=== PATIENT | female | born 1930 | race Caucasian/White ===

== ENCOUNTER 2016-12-24 16:50 | Inpatient (IN) ==
--- NOTE | 2016-12-24 16:58 | Emergency Department Note ---
Disposition Clinical Impression: Near syncope Disposition: Admitted As Inpatient Condition: Fair Referrals: Unassigned,Provider [Non-Partnered Physician] - Forms: ED Satisfaction Letter Time of Disposition: 20:14 Dizziness HPI - General Chief Complaint: ED Dizziness Stated Complaint: dizziness,fever Time Seen by Provider: 12/24/16 16:54 Source: patient, EMS Mode of arrival: EMS Limitations: no limitations Nursing Notes Reviewed: Yes Vital Signs Reviewed: Yes - History of Present Illness HPI Narrative: 86-year-old who was at dialysis today and developed lightheadedness and felt like she was going to pass out. 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 Timing: sudden onset Description: near-syncope History of similar episodes: No History of trauma: No Severity: moderate Improves with: nothing Worsens with: nothing Associated symptoms: Reports: fever - Related Data Home Medications Medication Instructions Recorded Confirmed Acetaminophen [Tylenol] 500 - 1,000 mg PO QID PRN 12/24/16 12/24/16 Aspirin Enteric Coated [Aspirin EC] 81 mg PO DAILY 12/24/16 12/24/16 Calcium Polycarbophil [Fiber 625 mg PO QAM 12/24/16 12/24/16 Laxative] Dicyclomine [Bentyl] 10 mg PO BID 12/24/16 12/24/16 DiphenhydraMINE [Benadryl] 25 mg PO HS 12/24/16 12/24/16 Epoetin Anand [Procrit] 10,000 unit IJ MOWEFR 12/24/16 12/24/16 Ergocalciferol (VITAMIN D2) 400 unit PO SA 12/24/16 12/24/16 [Vitamin D] GuaiFENesin/Dextromethorphan 10 ml PO Q4H PRN 12/24/16 12/24/16 [Tussin Dm Syrup] L. Rhamnosus GG/Inulin [Culturelle 1 each PO BID 12/24/16 12/24/16 Capsule] Lisinopril [Zestril] 10 mg PO DAILY 12/24/16 12/24/16 Melatonin 3 mg PO HS 12/24/16 12/24/16 Metoclopramide HCl 5 mg PO HS 12/24/16 12/24/16 Metoprolol [Lopressor] 37.5 mg PO TID 12/24/16 12/24/16 Nitroglycerin 0.4 mg SL Q5M PRN 12/24/16 12/24/16 Pantoprazole Sodium [Protonix] 40 mg PO QAM 12/24/16 12/24/16 Promethazine [Phenergan] 25 mg PO QAM 12/24/16 12/24/16 Ropinirole HCl [Requip] 0.5 mg PO Q6H 12/24/16 12/24/16 Sevelamer [Renvela] 1,600 mg PO TIDWM 12/24/16 12/24/16 Tramadol HCl [Ultram] 50 mg PO Q6H PRN 12/24/16 12/24/16 Vancomycin HCl 125 mg PO Q48H 12/24/16 12/24/16 Vancomycin HCl 125 mg PO Q72H 12/24/16 12/24/16 Warfarin [Coumadin] 4 mg PO SUMOWETHFR 12/24/16 12/24/16 Warfarin [Coumadin] 5 mg PO TUSA 12/24/16 12/24/16 Allergies Allergy/AdvReac Type Severity Reaction Status Date / Time Penicillins [PCN] Allergy Anaphylaxis Verified 10/03/16 12:12 clarithromycin [From Biaxin] AdvReac Rash Verified 10/03/16 12:12 gentamicin AdvReac Hallucinati Verified 10/03/16 12:12 ng Sulfa (Sulfonamide AdvReac Shakiness Verified 10/03/16 12:12 Antibiotics) Constitutional: Reports: fever, chills, weakness (Generalized). Denies: weight change Eyes: Denies: eye pain, eye discharge, vision change ENT ED: Denies: ear pain, throat pain, dental pain, hearing loss, epistaxis, congestion, dysphagia Cardiovascular: Denies: chest pain, palpitations, dyspnea on exertion, edema, syncope Respiratory: Reports: cough. Denies: dyspnea, wheezes, hemoptysis, stridor Gastrointestinal: Denies: abdominal pain, nausea, vomiting, diarrhea, constipation, hematemesis, melena, hematochezia Genitourinary: Denies: dysuria, frequency, hematuria, discharge Musculoskeletal: Denies: back pain, neck pain, arthralgia, myalgia Integumentary: Denies: rash, abrasion, lesions Neurological: Denies: headache, weakness, numbness, paresthesias, confusion, abnormal gait, vertigo Psychiatric: Denies: anxiety, depression, suicidal thoughts, homicidal thoughts , auditory hallucinations, visual hallucinations Endocrine: Reports: fatigue Hematological/Lymphatic: Denies: easy bleeding, easy bruising Allergic/Immunologic: Denies: facial swelling, urticaria Past Medical History - Past Medical History Medical history: Reports: CHF, COPD, DVT, pulmonary embolus, renal disease Surgical history: Reports: cholecystectomy, herniorrhaphy, hysterectomy Psychiatric history: Reports: no psych history - Social History Smoking Status: Never smoker Alcohol use: Reports: none Drug use: Reports: none Physical Exam - General Limitations: no limitations General appearance: alert, in no apparent distress - Head Head exam: atraumatic, normocephalic, normal inspection - Eye Eye exam: Present: normal appearance, PERRL, EOMI - ENT ENT exam: normal exam, normal oropharynx, mucous membranes moist - Neck Neck exam: Present: normal inspection, full ROM, trachea midline - Chest Chest inspection: Present: normal inspection, symmetric chest wall rise - Respiratory Respiratory exam: Present: normal lung sounds bilaterally - Cardiovascular Cardiovascular exam: Present: regular rate, normal rhythm, normal heart sounds - Abdominal Exam Abdominal exam: Present: soft, Non-Tender. Absent: tenderness, distention, guarding, rebound, rigidity - Extremities Exam Extremities exam: Present: normal inspection, full ROM. Absent: tenderness, pedal edema - Expanded Lower Extremity Exam Neurovascular/Tendon exam: Absent: motor deficit, sensory deficit, tendon deficit - Back Exam Back exam: Present: normal inspection, full ROM. Absent: tenderness - Neurological Exam Neurological exam: Present: alert, oriented X3 - Psychiatric Psychiatric exam: Present: normal affect, normal mood - Skin Skin exam: Present: warm, dry Course - Reevaluation(s) Reevaluation #1: 86 year old female who was at dialysis was not lightheaded and felt like she was going pass out. She does have cold-like symptoms with a cough. The patient' s workup included a troponin that was slightly elevated likely related to her renal failure however there are no old ones to compare to. We are going ahead and admit patient for further evaluation and treatment. Time: 20:12 - Consultations Consultation #1: Discussed with , admit to the hospital. Time: 19:10 Consultation #2: Discussed with Dr. Moses, admit. Time: 20:12 Vital Signs Temperature 99 F 12/24/16 16:54 Pulse Rate 106 12/24/16 16:54 Respiratory Rate 18 12/24/16 16:54 Blood Pressure 171/107 12/24/16 16:54 O2 Sat by Pulse Oximetry 91 L 12/24/16 16:54 Temperature 99 F 12/24/16 16:54 Pulse Rate 106 12/24/16 18:59 Respiratory Rate 18 12/24/16 18:59 Blood Pressure 106/91 12/24/16 18:59 O2 Sat by Pulse Oximetry 96 12/24/16 18:59 Oxygen Delivery Oxygen Delivery Nasal Cannula Dizziness - Lab Data Result diagrams: 12/24/16 17:22 12/24/16 17:22 Lab Results 12/24/16 12/24/16 12/24/16 Range/Units 17:22 17:22 17:22 WBC 12.8 H (4.3-11.1) K/mcL RBC 3.26 L (3.82-4.97) M/mcL Hgb 10.3 L (11.5-15.4) g/dL Hct 33.0 L (35.3-44.9) % MCV 101.2 H (83.0-100.0) fL MCH 31.6 (28.0-33.3) pg MCHC 31.2 L (31.6-35.5) g/dL RDW 15.4 H (11.5-14.5) % Plt Count 244 (140-400) K/mcL MPV 9.4 (9.4-12.4) fL Immature Gran % 1.6 (0-4) % Seg Neutrophils % 73.7 % Lymphocytes % 17.0 % Monocytes % 6.5 % Eosinophils % 0.9 % Basophils % 0.3 % Neutrophils # 9.4 H (1.6-8.9) K/mcL Lymphocytes # 2.2 (0.6-4.6) K/mcL Monocytes # 0.8 (0.0-1.3) K/mcL Eosinophils # 0.1 (0.0-0.6) K/mcL Basophils # 0.0 (0.0-0.2) K/mcL PT 15.1 H (9.4-12.1) Seconds INR 1.4 Sodium 136 (136-145) mEq/L Potassium 3.6 (3.5-4.5) mEq/L Chloride 100 (98-109) mEq/L Carbon Dioxide 25 (19-29) mEq/L BUN 14 (7-20) mg/dL Creatinine 2.69 H (0.57-1.11) mg/dL Est GFR ( Amer) 20 L (> 60) Est GFR (Non-Af Amer) 17 L (> 60) BUN/Creatinine Ratio 5 L (6-26) Glucose 91 (70-99) mg/dL Calculated Osmolality 282 (280-300) Calcium 8.7 (8.6-10.8) mg/dL Troponin I (0-0.03) ng/mL 12/24/16 Range/Units 17:22 WBC (4.3-11.1) K/mcL RBC (3.82-4.97) M/mcL Hgb (11.5-15.4) g/dL Hct (35.3-44.9) % MCV (83.0-100.0) fL MCH (28.0-33.3) pg MCHC (31.6-35.5) g/dL RDW (11.5-14.5) % Plt Count (140-400) K/mcL MPV (9.4-12.4) fL Immature Gran % (0-4) % Seg Neutrophils % % Lymphocytes % % Monocytes % % Eosinophils % % Basophils % % Neutrophils # (1.6-8.9) K/mcL Lymphocytes # (0.6-4.6) K/mcL Monocytes # (0.0-1.3) K/mcL Eosinophils # (0.0-0.6) K/mcL Basophils # (0.0-0.2) K/mcL PT (9.4-12.1) Seconds INR Sodium (136-145) mEq/L Potassium (3.5-4.5) mEq/L Chloride (98-109) mEq/L Carbon Dioxide (19-29) mEq/L BUN (7-20) mg/dL Creatinine (0.57-1.11) mg/dL Est GFR ( Amer) (> 60) Est GFR (Non-Af Amer) (> 60) BUN/Creatinine Ratio (6-26) Glucose (70-99) mg/dL Calculated Osmolality (280-300) Calcium (8.6-10.8) mg/dL Troponin I 0.08 H* (0-0.03) ng/mL - Radiology Data Radiology results reviewed: Yes I reviewed the patient's radiology results. Chest X-Ray 12/24/16 16:54 IMPRESSION: 1. Low lung volumes. D/ / 12/24/2016 17:40:28 Delbert Park MD / gopal Interpreting Provider: Delbert Park MD Head CT 12/24/16 16:54 IMPRESSION: No acute intracranial abnormality. 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 Mild parenchymal volume loss. Moderate chronic microvascular disease. D/ / Aron Yepez MD / Aron Yepez MD Interpreting Provider: Aron Yepez MD
[2016-12-24 17:34] LABS: Basophils % 0.3 %; Eosinophils # 0.1 K/mcL (0.0-0.6); Eosinophils % 0.9 %; Hemoglobin 10.3 g/dL (11.5-15.4); Immature Granulocytes % 1.6 % (0-4); Lymphocytes # 2.2 K/mcL (0.6-4.6); Mean Corpuscular HGB Conc 31.2 g/dL (31.6-35.5); Mean Corpuscular Hemoglobin 31.6 pg (28.0-33.3); Mean Corpuscular Volume 101.2 fL (83.0-100.0); Mean Platelet Volume 9.4 fL (9.4-12.4); Monocytes # 0.8 K/mcL (0.0-1.3); Monocytes % 6.5 %; Neutrophils # 9.4 K/mcL (1.6-8.9); Platelet Count 244 K/mcL (140-400); Red Blood Count 3.26 M/mcL (3.82-4.97); Red Cell Distribution Width 15.4 % (11.5-14.5); Segmented Neutrophils % 73.7 %
[2016-12-24 17:41] LABS: INR 1.4; Prothrombin Time 15.1 Seconds (9.4-12.1)
[2016-12-24 17:48] LABS: Calcium 8.7 mg/dL (8.6-10.8); Potassium 3.6 mEq/L (3.5-4.5)
[2016-12-24] MEDS ORDERED: Acetaminophen 325 MG TABLET PO PRN (22:59)
[2016-12-24] MEDS ORDERED: Naloxone 0.4 MG/ML INJ IVP PRN (22:59)
[2016-12-24] MEDS: Benzonatate 100 MG CAPSULE PO PRN (23:07)
[2016-12-24] MEDS: predniSONE 20 MG TABLET PO SCH (23:08)
[2016-12-24] MEDS ORDERED: Desitin (Zinc Oxide) 56 GM TUBE TP PRN (23:24)
--- NOTE | 2016-12-24 23:41 | Internal Med History&Physical ---
Date of Encounter: 12/24/16 Time of Encounter: 22:30 Assessment and Plan (1) Near syncope Current visit: Yes Status: Acute I suspect it is Possibly related to hypotension during hemodialysis. Improved. Cardiac monitoring. Will consult Police Detention Attendant for evaluation and consider possible changes to dialysis parameters, if the pt had hypotension during dialysis Code(s): R55 - Syncope and collapse (2) Bronchitis Current visit: Yes Status: Acute Suspect bronchitis. Will treat with steroids and mucinex. (3) Elevated troponin Current visit: Yes Status: Acute Suspect the pt may have hypotension during dialysis. Trend troponins. COnsider Cardiology consult and echocardiogram. (4) ESRD (end stage renal disease) on dialysis Current visit: Yes Status: Chronic Nephrology consult - Dr Lazo (5) Pulmonary embolism on long-term anticoagulation therapy Current visit: Yes Status: Chronic INR is subtherapeutic. Continue warfarin - dosing per pharmacy. Heparin subcutaneous until INR is therapeutic for DVT prophylaxis (6) C. difficile diarrhea Current visit: Yes Status: Chronic Diarrhea is improving Internal Medicine - H&P: HPI Chief complaint: Dizziness Admitted From: Emergency Dept Plans for Post Hospital Care: Home History of present illness: Ms. Laurent is a 86 year old female with h/o ESRD - previously on peritoneal dialysis but recently switched to hemodialysis; CHF, COPD, DVT / pulmonary embolus - on warfarin for anticoagulation (recently stopped for hemodialysis access placement and re-started). She apparently had ICU admission for pneumonia and CHF, needing intubation and ventilation. She apparently felt dizzy and felt like she was going to pass out, during her dialysis session today. She did not loose consciousness and does not know what the BP was at that time. She also reports feeling hot. Denies chest pain, palpitations. She reports a dry cough for about 2 weeks, with some shortness of breath. She reports multiple episodes of diarrhea, currently being treated with vancomycin for suspected C. difficile infection. She is on tapering dose of oral vancomycin. She had one episode of diarrhea today. Denies abdominal pain. Makes urine occasionally. In the ER, she was noted to have troponin of 0.08. she is admitted to the hospitalist service for further work-up and management. Past Med Surg Social Fam HX - Past Medical History Medical history: CHF, COPD, DVT, pulmonary embolus, renal disease, other Psychiatric history: no psych history - Past Surgical History Surgical History: cholecystectomy, herniorrhaphy, hysterectomy, orthopedic, other - Social History Smoking Status: Never smoker Alcohol use: none Drug use: none - Family History Mother Living Status: Age at : 76 Cause of : Kidney Failure Hx Family Cardiac Disorders: Yes Hx Family Respiratory Disorders: No Hx Family Cancer: Yes (melanoma) Hx Family GI Disorders: No Hx Family Genitourinary Disorders: Yes (kidney failure) Hx Family Endocrine Disorder: Yes (DM) Hx Family Musculoskeletal Disorders: No Hx Family Neuromuscular Disorders: No Hx Family Neurologic Disorders: No Hx Family HEENT Disorders: No Hx Family Autoimmune Disorders: No Hx Family Reproductive Disorders: No Hx Family Psychosocial Disorders: No Hx Family Medical Disorders: No Internal Medicine - H&P: Meds Acetaminophen [Tylenol] 500 - 1,000 mg PO QID PRN 12/24/16 [History] Aspirin Enteric Coated [Aspirin EC] 81 mg PO DAILY 12/24/16 [History] Calcium Polycarbophil [Fiber Laxative] 625 mg PO QAM 12/24/16 [History] Dicyclomine [Bentyl] 10 mg PO BID 12/24/16 [History] DiphenhydraMINE [Benadryl] 25 mg PO HS 12/24/16 [History] Epoetin Anand [Procrit] 10,000 unit IJ MOWEFR 12/24/16 [History] Ergocalciferol (VITAMIN D2) [Vitamin D] 400 unit PO SA 12/24/16 [History] GuaiFENesin/Dextromethorphan [Tussin Dm Syrup] 10 ml PO Q4H PRN 12/24/16 [ History] L. Rhamnosus GG/Inulin [Culturelle Capsule] 1 each PO BID 12/24/16 [History] Lisinopril [Zestril] 10 mg PO DAILY 12/24/16 [History] Melatonin 3 mg PO HS 12/24/16 [History] Metoclopramide HCl 5 mg PO HS 12/24/16 [History] Metoprolol [Lopressor] 37.5 mg PO TID 12/24/16 [History] Nitroglycerin 0.4 mg SL Q5M PRN 12/24/16 [History] Pantoprazole Sodium [Protonix] 40 mg PO QAM 12/24/16 [History] Promethazine [Phenergan] 25 mg PO QAM 12/24/16 [History] Ropinirole HCl [Requip] 0.5 mg PO Q6H 12/24/16 [History] Sevelamer [Renvela] 1,600 mg PO TIDWM 12/24/16 [History] Tramadol HCl [Ultram] 50 mg PO Q6H PRN 12/24/16 [History] Vancomycin HCl 125 mg PO Q48H 12/24/16 [History] Vancomycin HCl 125 mg PO Q72H 12/24/16 [History] Warfarin [Coumadin] 4 mg PO SUMOWETHFR 12/24/16 [History] Warfarin [Coumadin] 5 mg PO TUSA 12/24/16 [History] Allergies Penicillins [PCN] Allergy (Verified 10/03/16 12:12) Anaphylaxis clarithromycin [From Biaxin] Adverse Reaction (Verified 10/03/16 12:12) Rash gentamicin Adverse Reaction (Verified 10/03/16 12:12) Hallucinating Sulfa (Sulfonamide Antibiotics) Adverse Reaction (Verified 10/03/16 12:12) Shakiness All Systems PM: A 10-system review of systems was performed and is negative for pertinent findings except as documented above in the HPI. - Constitutional Vitals: Temp Pulse Resp BP Pulse Ox 97.8 F 103 24 143/73 96 12/24/16 21:42 12/24/16 21:42 12/24/16 21:42 12/24/16 21:42 12/24/16 21:42 Exam: General: Not in acute pain at the time of my evaluation HEENT: Oral mucosa is moist. No conjunctival palor or scleral icterus Neck: No obvious neck swellings Lungs: Clear to auscultation Cardiac: Regular rate and rhythm. No significant murmurs Abdomen: Soft, non tender. Bowel sounds present Genitourinary: No bailey catheter Neurological: Alert and oriented. No gross localizing deficits Psych: Not aggressive or agitated Extremities: Mild leg edema Skin: No generalized rash Internal Med - H&P Results - Labs CBC & Chem 7: 12/24/16 17:22 12/24/16 17:22 - EKG Data -: EKG Interpreted by Myself EKG shows normal: sinus rhythm - EKG Data EKG comments: Poor R wave progression in the anterior chest leads 12/25/16 06:36 - Impressions ITS Impressions Chest X-Ray 12/24/16 16:54 IMPRESSION: 1. Low lung volumes. D/ / 12/24/2016 17:40:28 Delbert Park MD / gopal Interpreting Provider: Delbert Park MD Head CT 12/24/16 16:54 IMPRESSION: No acute intracranial abnormality. 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 Mild parenchymal volume loss. Moderate chronic microvascular disease. D/ / Aron Yepez MD / Aron Yeepz MD Interpreting Provider: Aron Yepez MD
[2016-12-25] MEDS: Benzonatate 100 MG CAPSULE PO PRN ×3 (02:55→17:40)
[2016-12-25] MEDS ORDERED: Nitroglycerin 0.4 MG TAB.SUBL SL PRN (06:13)
[2016-12-25] MEDS ORDERED: traMADol 50 MG TABLET PO PRN ×2 (06:13→13:02)
[2016-12-25] MEDS: rOPINIRole 0.25 MG TABLET PO SCH ×3 (06:47→17:40)
[2016-12-25 07:10] LABS: INR 1.4; Prothrombin Time 15.5 Seconds (9.4-12.1)
--- NOTE | 2016-12-25 07:57 | Nephrology Consult Note ---
Date of Encounter: 12/25/16 Time of Encounter: 07:52 Assessment and Plan (1) ESRD (end stage renal disease) on dialysis Current Visit: Yes Status: Chronic Patient has end-stage renal disease. She did have some weakness both prior to and during dialysis yesterday. She may have had some subclinical intradialytic hypotension. Changes will be made in her dry weight accordingly. Currently her vital signs are stable. She will continue to receive her usual dialysis here in the hospital. She is on antibiotics for acute bronchitis. She will be placed on Aranesp for her anemia. (2) Acute bronchitis Current Visit: Yes Status: Acute Qualifiers: Bronchitis organism: unspecified organism Qualified Code(s): J20.9 - Acute bronchitis, unspecified (3) Elevated troponin Current Visit: Yes Status: Acute History of Present Illness - History of Present Illness This is an 86-year-old female with end-stage renal disease who recently changed to hemodialysis in [place]. Previous to that she been on peritoneal dialysis. She is debilitated and currently resides at a custodial. She was recently hospitalized at [facility] for congestive heart failure and respiratory failure. Next para patient had her usual dialysis yesterday. At presentation to dialysis she reported that she did not feel well. She complains of a 3 day history of cough without sputum production. She has some shortness of breath. During dialysis she continued to not feel well. Her blood pressure going into dialysis was 120/77. Her lowest blood pressure was 101 systolic. She did have a reduction in her ultrafiltration. At the time her dialysis was finished blood pressure was 124/65. However the patient is complaining of not feeling well and complained of lightheadedness. Patient never lost consciousness. She was able to transfer from the dialysis chair to wheelchair prior to being transported to the emergency room. Currently the patient says she is feeling some better. She still complaining of a cough. She denies any chest pain. She denies any sputum production. She denies any fever. She does experience some chronic shortness of breath. Past Med Surg Social Fam HX - Past Medical History Medical history: CHF, COPD, DVT, pulmonary embolus, renal disease, other Psychiatric history: no psych history - Past Surgical History Surgical History: cholecystectomy, herniorrhaphy, hysterectomy, orthopedic, other - Social History Smoking Status: Never smoker Alcohol use: none Drug use: none - Family History Mother Living Status: Age at : 76 Cause of : Kidney Failure Hx Family Cardiac Disorders: Yes Hx Family Respiratory Disorders: No Hx Family Cancer: Yes (melanoma) Hx Family GI Disorders: No Hx Family Genitourinary Disorders: Yes (kidney failure) Hx Family Endocrine Disorder: Yes (DM) Hx Family Musculoskeletal Disorders: No Hx Family Neuromuscular Disorders: No Hx Family Neurologic Disorders: No Hx Family HEENT Disorders: No Hx Family Autoimmune Disorders: No Hx Family Reproductive Disorders: No Hx Family Psychosocial Disorders: No Hx Family Medical Disorders: No Medications and Allergies Acetaminophen [Tylenol] 500 - 1,000 mg PO QID PRN 12/24/16 [History] Aspirin Enteric Coated [Aspirin EC] 81 mg PO DAILY 12/24/16 [History] Calcium Polycarbophil [Fiber Laxative] 625 mg PO QAM 12/24/16 [History] Dicyclomine [Bentyl] 10 mg PO BID 12/24/16 [History] DiphenhydraMINE [Benadryl] 25 mg PO HS 12/24/16 [History] Epoetin Anand [Procrit] 10,000 unit IJ MOWEFR 12/24/16 [History] Ergocalciferol (VITAMIN D2) [Vitamin D] 400 unit PO SA 12/24/16 [History] GuaiFENesin/Dextromethorphan [Tussin Dm Syrup] 10 ml PO Q4H PRN 12/24/16 [ History] L. Rhamnosus GG/Inulin [Culturelle Capsule] 1 each PO BID 12/24/16 [History] Lisinopril [Zestril] 10 mg PO DAILY 12/24/16 [History] Melatonin 3 mg PO HS 12/24/16 [History] Metoclopramide HCl 5 mg PO HS 12/24/16 [History] Metoprolol [Lopressor] 37.5 mg PO TID 12/24/16 [History] Nitroglycerin 0.4 mg SL Q5M PRN 12/24/16 [History] Pantoprazole Sodium [Protonix] 40 mg PO QAM 12/24/16 [History] Promethazine [Phenergan] 25 mg PO QAM 12/24/16 [History] Ropinirole HCl [Requip] 0.5 mg PO Q6H 12/24/16 [History] Sevelamer [Renvela] 1,600 mg PO TIDWM 12/24/16 [History] Tramadol HCl [Ultram] 50 mg PO Q6H PRN 12/24/16 [History] Vancomycin HCl 125 mg PO Q48H 12/24/16 [History] Vancomycin HCl 125 mg PO Q72H 12/24/16 [History] Warfarin [Coumadin] 4 mg PO SUMOWETHFR 12/24/16 [History] Warfarin [Coumadin] 5 mg PO TUSA 12/24/16 [History] Allergies Penicillins [PCN] Allergy (Verified 10/03/16 12:12) Anaphylaxis clarithromycin [From Biaxin] Adverse Reaction (Verified 10/03/16 12:12) Rash gentamicin Adverse Reaction (Verified 10/03/16 12:12) Hallucinating Sulfa (Sulfonamide Antibiotics) Adverse Reaction (Verified 10/03/16 12:12) Shakiness Review of Systems Constitutional: as per HPI, weakness Eyes: bilateral: blurred vision (patient denies), diplopia (patient denies) Nose, mouth and throat: no dizziness, no headache(s) Cardiovascular: dyspnea on exertion, no chest pain, no palpitations Respiratory: as per HPI, cough, dyspnea, dyspnea on exertion Gastrointestinal: no abdominal pain, no change in bowel habits Musculoskeletal: no muscle weakness, no numbness Integumentary: no hirsutism, no striae Neurological: weakness Psychiatric: no depression, no difficulty concentrating Endocrine: as per HPI Hematologic/Lymphatic: no easy bruising, no lymphadenopathy Exam - Vital Signs Vital signs: Initial Vital Signs Temp Pulse Resp BP Pulse Ox 99 F 106 18 171/107 91 L 12/24/16 16:54 12/24/16 16:54 12/24/16 16:54 12/24/16 16:54 12/24/16 16:54 Vital Signs - Last 8 Hours Temp Pulse Resp BP Pulse Ox 12/25/16 07:27 98.4 F 91 16 169/70 94 L 12/25/16 04:41 98.6 F 75 16 94/63 100 12/25/16 00:09 99.2 F 112 16 156/67 96 Intake and Output 12/24/16 12/24/16 12/25/16 15:59 23:59 07:59 Other: Weight 62.5 kg - General Appearance Exam: Patient is alert and oriented. She is in no acute distress. She appears chronically ill. Neck is supple. Lungs diminished breath sounds. There are no wheezes rales or rhonchi. Heart irregular rate and rhythm with a systolic murmur. Abdomen shows normal bowel sounds bruits masses or megaly or tenderness. There is no peripheral edema. There is an [id number] in the right chest and a tunnel dialysis catheter in the left chest. Results - Lab Results 12/24/16 17:22 12/24/16 17:22 Most recent lab results Calcium 8.7 mg/dL (8.6-10.8) 12/24/16 17:22 Consult Discharge Plan - Plan Referrals: Lenard Caballero MD [Primary Care Provider] - (Needs to be called for appointment)
[2016-12-25] MEDS: predniSONE 20 MG TABLET PO SCH (08:20)
[2016-12-25] MEDS: Lactobacillus 1 EACH CAP.SPRINK PO SCH ×2 (08:20→21:09)
[2016-12-25] MEDS: Aspirin Enteric Coated 81 MG Tablet PO SCH (08:20)
[2016-12-25] MEDS ORDERED: VANCOMYCIN HCL 125 MG PO SCH (09:00)
--- NOTE | 2016-12-25 09:24 | Cardiology Consult Note ---
<Srinivas Cotter - Last Filed: 12/25/16 09:35> Date of Encounter: 12/25/16 Time of Encounter: 09:22 Assessment and Plan (1) Near syncope Current Visit: Yes Status: Acute Likely secondary to hypovolemia d/t seven weeks of diarrhea and poor NPO intake. Pt on thickened liquids and did not like them. Check orthostatic b/p. Consider IV hydration. Telemetry shows SR-ST with frequent PAC, occasional PAC. Avg HR was 99 bpm. No bradycardia, pauses, or VT seen. Check TTE and carotids. (2) Elevated troponin Current Visit: Yes Status: Acute mild adynamic troponin elevation in the setting of ESRD, elevated blood pressure 171/100, and possible hypotension during dialysis, and hypovolemia. Likely demand ischemia. She denies chest pain. TTE pending. EKG shows no acute ST changes. (3) Acute bronchitis Current Visit: Yes Status: Acute Your IM care. Qualifiers: Bronchitis organism: unspecified organism Qualified Code(s): J20.9 - Acute bronchitis, unspecified (4) ESRD (end stage renal disease) on dialysis Current Visit: Yes Status: Chronic Nephrology consulted. 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 Discussion w patient/family: The assessment and plan as outlined above was discussed with the patient and/or family members who expressed understanding and agreement. All questions were answered. Thank you for involving us in the care of your patient. Please call with any questions. History of Present Illness Consult date: 12/25/16 Requesting physician: Dayna Carvalho Consult reason: elevated troponin Chief complaint: dizziness History of present illness: Ms. Laurent is a 86 year old female with a history of ESRD newly on dialysis, previous peritoneal dialysis, hypertension, DVT, PE on Coumadin, and COPD. She presents with a near syncopal episode that occurred during dialysis. Her blood pressure at that time was unknown and was not passed on to the ER. Her blood pressure on admission was 171/100. She complains of diarrhea over the last 7-8 weeks and is currently being treated for possible C. difficile. She complains of a cough and shortness of breath over the past 3 days and is now being treated for bronchitis. Cardiology is consulted for elevated troponin. Troponin was 0.08, 0.08. She denies previous history of CAD. Past Med Surg Social Fam HX - Past Medical History Medical history: COPD, DVT, pulmonary embolus, renal disease, other Psychiatric history: no psych history - Past Surgical History Surgical History: cholecystectomy, herniorrhaphy, hysterectomy, orthopedic, other - Social History Smoking Status: Never smoker Alcohol use: none Drug use: none - Family History Mother Living Status: Age at : 76 Cause of : Kidney Failure Hx Family Cardiac Disorders: Yes Hx Family Respiratory Disorders: No Hx Family Cancer: Yes (melanoma) Hx Family GI Disorders: No Hx Family Genitourinary Disorders: Yes (kidney failure) Hx Family Endocrine Disorder: Yes (DM) Hx Family Musculoskeletal Disorders: No Hx Family Neuromuscular Disorders: No Hx Family Neurologic Disorders: No Hx Family HEENT Disorders: No Hx Family Autoimmune Disorders: No Hx Family Reproductive Disorders: No Hx Family Psychosocial Disorders: No Hx Family Medical Disorders: No Medications and Allergies Acetaminophen [Tylenol] 500 - 1,000 mg PO QID PRN 12/24/16 [History] Aspirin Enteric Coated [Aspirin EC] 81 mg PO DAILY 12/24/16 [History] Calcium Polycarbophil [Fiber Laxative] 625 mg PO QAM 12/24/16 [History] Dicyclomine [Bentyl] 10 mg PO BID 12/24/16 [History] DiphenhydraMINE [Benadryl] 25 mg PO HS 12/24/16 [History] Epoetin Anand [Procrit] 10,000 unit IJ MOWEFR 12/24/16 [History] Ergocalciferol (VITAMIN D2) [Vitamin D] 400 unit PO SA 12/24/16 [History] GuaiFENesin/Dextromethorphan [Tussin Dm Syrup] 10 ml PO Q4H PRN 12/24/16 [ History] L. Rhamnosus GG/Inulin [Culturelle Capsule] 1 each PO BID 12/24/16 [History] Lisinopril [Zestril] 10 mg PO DAILY 12/24/16 [History] Melatonin 3 mg PO HS 12/24/16 [History] Metoclopramide HCl 5 mg PO HS 12/24/16 [History] Metoprolol [Lopressor] 37.5 mg PO TID 12/24/16 [History] Nitroglycerin 0.4 mg SL Q5M PRN 12/24/16 [History] Pantoprazole Sodium [Protonix] 40 mg PO QAM 12/24/16 [History] Promethazine [Phenergan] 25 mg PO QAM 12/24/16 [History] Ropinirole HCl [Requip] 0.5 mg PO Q6H 12/24/16 [History] Sevelamer [Renvela] 1,600 mg PO TIDWM 12/24/16 [History] Tramadol HCl [Ultram] 50 mg PO Q6H PRN 12/24/16 [History] Vancomycin HCl 125 mg PO Q48H 12/24/16 [History] Vancomycin HCl 125 mg PO Q72H 12/24/16 [History] Warfarin [Coumadin] 4 mg PO SUMOWETHFR 12/24/16 [History] Warfarin [Coumadin] 5 mg PO TUSA 12/24/16 [History] Allergies Penicillins [PCN] Allergy (Verified 10/03/16 12:12) Anaphylaxis clarithromycin [From Biaxin] Adverse Reaction (Verified 10/03/16 12:12) Rash gentamicin Adverse Reaction (Verified 10/03/16 12:12) Hallucinating Sulfa (Sulfonamide Antibiotics) Adverse Reaction (Verified 10/03/16 12:12) Shakiness All Systems Review: A 10-system review of systems was performed and is negative for pertinent findings except as documented above in the HPI. Physical Examination Vital Signs, Last 4 Hours Temp Pulse Resp BP Pulse Ox 12/25/16 07:27 98.4 F 91 16 169/70 94 L General: Conversant, No Apparent Distress HEENT: Atraumatic, Normocephaly, Mucus Membranes Moist Neck: No JVD, Normal carotid pulses Cardiac: Reg Rate and Rhythm, Normal S1 and S2, No Murmur Lungs: Normal Breath Sounds, No Wheeze, Rales, Rhonchi Neuro: Alert and responsive, No focal deficits noted Abdomen: Soft, Non-Tender Skin: No rashes noted on visualized skin Musculoskeletal: No Chest Wall Tenderness Extremities: No Clubbing, No Cyanosis, No Edema, Normal Pulses Results 12/24/16 17:22 12/24/16 17:22 Lab Results 12/25/16 12/25/16 12/25/16 00:28 05:07 06:23 INR 1.4 Troponin I 0.08 H* 0.08 H* - Imaging and Cardiology Echo: pending - EKG Interpretation EKG results cardiology: personally reviewed (ST with PAC, HR 100. No acute ST changes.), other (Avg hr 99 bpm, frequent PAC and PVC. No significant bradycardia, pauses or VT seen.) Consult Discharge Plan - Plan Referrals: Lenard Caballero MD [Primary Care Provider] - (Needs to be called for appointment) <Juan F Henderson - Last Filed: 12/25/16 11:57> Date of Encounter: 12/25/16 Assessment and Plan Discussion w patient/family: The assessment and plan as outlined above was discussed with the patient and/or family members who expressed understanding and agreement. All questions were answered. Thank you for involving us in the care of your patient. Please call with any questions. History of Present Illness History of present illness: Ms. Laurent is a 86 year old female All Systems Review: A 10-system review of systems was performed and is negative for pertinent findings except as documented above in the HPI. Results 12/24/16 17:22 12/24/16 17:22 Lab Results 12/25/16 12/25/16 12/25/16 00:28 05:07 06:23 INR 1.4 Troponin I 0.08 H* 0.08 H* - Attending Attestation I examined this patient and my medical decision-making was reviewed with the SOLE ROUNDING MACHINE OPERATOR/PA/Advanced Practice Nurse/Resident Physician. I agree with the documented findings, disposition and treatment plan as described except to the extent set forth below. Pt admitted with near syncope appears to be orthostatic, no cp, sob, no seizure activity was at dialysis has been having dehydration ie C Diff Dia[place]rea VSS no carotid bruit Lungs: clear CVS: no murmurs, gallops, rubs EKG: no acute changes consider giving fluids do not think this is cardiac in nature will review echo when done no signs of ischemia Thanks!
[2016-12-25] MEDS ORDERED: *HR* Heparin 5,000 UNIT/ML VIAL IVP PRN (13:04)
[2016-12-25 14:38] LABS: Hematocrit 30.4 % (35.3-44.9); Hemoglobin 9.5 g/dL (11.5-15.4); Mean Corpuscular HGB Conc 31.3 g/dL (31.6-35.5); Mean Corpuscular Hemoglobin 31.5 pg (28.0-33.3); Mean Corpuscular Volume 100.7 fL (83.0-100.0); Mean Platelet Volume 9.1 fL (9.4-12.4); Platelet Count 226 K/mcL (140-400); Red Blood Count 3.02 M/mcL (3.82-4.97); Red Cell Distribution Width 15.1 % (11.5-14.5)
[2016-12-25 14:42] LABS: INR 1.4; Prothrombin Time 15.7 Seconds (9.4-12.1)
[2016-12-25 14:44] LABS: Activated Partial Thrombo Time 29.5 Seconds (26.0-36.0)
[2016-12-25] MEDS ORDERED: 0.9 % Sodium Chloride 1,000 ML ONE (14:44)
[2016-12-25] MEDS: Heparin 25,000 UNIT/500 ML D5W 25,000 UNIT/500 ML MLS IVC SCH (15:16)
--- NOTE | 2016-12-25 15:18 | ECHO - Doppler Report ---
Echocardiogram Name: Lili Laurent Date of Study: 12/25/2016 Date: 1930 Ht: 63.0 in Medical Record#: [id number] Age: 86 Wt: 137.0 lb Gender: Female BSA: 1.65 Order #: [id number] Location: [facility] Room #: 2A51 Reading Physician: Unruly Casey MD, [facility] Automatic Nailing Machine Feeder: Mian Obrien RN Ordering Physician: Prosper Carvalho MD Primary Physician: Lenard Caballero MD Indications: Elevated Troponin Impressions: Normal left ventricular size and systolic function, LVEF 55-60%. Mild concentric left ventricular hypertrophy. Mild left ventricular diastolic dysfunction. Normal right ventricular size and function. Moderate-severely dilated left atrium. Moderate-severely calcified aortic valve leaflets. Valve morphology not well visualized. Moderate aortic stenosis. Peak velocity 3.53 m/sec, mean gradient 26 mmHg, aortic valve area 1.07 cm2. No evidence of pulmonary hypertension. Left Ventricular Wall Motion: Rest Echo Findings All wall segments showed normal motion. Findings: Study Quality * Technically adequate exam. ECG Findings * Sinus rhythm with PACs and PVCs. Left Ventricle * Normal left ventricular size and systolic function, LVEF 55-60%. * Normal LV chamber size. * Mild concentric left ventricular hypertrophy. * Mild left ventricular diastolic dysfunction. Right Ventricle * Normal right ventricular size and function. Left Atrium * Moderate-severely dilated left atrium. Right Atrium * Normal right atrial size. Aorta * Normally sized aortic root. Pericardium * There is no pericardial effusion present. IVC * Normal IVC dimensions and inspiratory collapse. Aortic Valve * Moderate-severely calcified aortic valve leaflets. Valve morphology not well visualized. * Moderate aortic stenosis. Peak velocity 3.53 m/sec, mean gradient 26 mmHg, aortic valve area 1.07 cm2. * Trace aortic regurgitation. Mitral Valve * Mild-moderate mitral annular calcification * No mitral stenosis. * Trace mitral regurgitation. Tricuspid Valve * Normal tricuspid valve structure. * No tricuspid stenosis. * Trace tricuspid regurgitation. * No evidence of pulmonary hypertension. Pulmonic Valve * Pulmonic valve not well visualized. * No pulmonic stenosis. * No pulmonic regurgitation. History Hypertension Family History of CAD Congestive Heart Failure Valvular Disease Measurements: BP: 145/ 84 2D Normal Values RVIDd: 3.20 cm IVSd: 1.20 cm 0.6 - 1.0 cm LVIDd: 4.00 cm 3.7 - 5.6 cm LVPWd: 1.20 cm 0.6 - 1.1 cm LVIDs: 2.65 cm 1.5 - 3.6 cm AO: 2.50 cm < 4.0 cm %FS: 32.50 cm >25 % LVOT Diam: 2.00 cm LA volume: 70 Mitral Valve Peak E:.69 m/sec Peak A:1.49 m/sec E/A Ratio:0.5 Peak E' Lat Tripp:5.65 cm/s Peak E' Med Tripp:4.48 cm/s E/E' Lat Ratio:12.2 E/E' Med Ratio:15.4 Aortic Valve Peak Tripp:3.53 m/sec Peak Grad:50.00 mmHg Mean Grad:26.00 mmHg Valve Area:1.07 cm2 Tricuspid Valve TV Regurg Peak Grad: 26.00mmHg TV Regurg Peak Tripp: 2.54m/sec Updated by Unruly Casey MD, [facility] on 12/25/2016 3:11:25 PM electronically signed on 12/25/2016 3:12:27 PM with status of Final Wall Motion Ferrer: 1=Normal, 2=Hypokinesis, 3=Akinesis, 4=Dyskinesis, 5=Aneurysmal, 6=Hyperkinetic, X=Not Visualized (Blank)=Missing
[2016-12-25] MEDS ORDERED: Warfarin perPT PO PRN (18:00)
[2016-12-25] MEDS ORDERED: *HR* Warfarin 4 MG TABLET PO SCH (18:00)
--- NOTE | 2016-12-25 18:24 | Internal Med Progress Note ---
Date of Encounter: 12/25/16 Time of Encounter: 12:30 - Assessment and plan (1) Near syncope Current Visit: Yes Status: Acute Assessment and plan: Patient felt dizzy and felt like she was going to pass out during her dialysis session on the day of admission 12/24. NO loc. She denied chest pain, palpitations. She reports 2 week history of dry cough and shortness of breath. She also has 7 weeks of chronic diarrhea and is on tapering dose of oral vancomycin for suspected C. difficile infection. Patient also reports poor oral intake because she was recommended thickened liquids and she does not like them. EKG showed no acute ischemic changes, frequent PAC. Appreciate cardiology input. Near syncopal episode likely secondary to hypovolemia due to the dehydration from diarrhea and poor oral intake. Elevated troponin likely secondary to supply a month mismatch due to uncontrolled hypertension, dehydration and ESRD. Echocardiogram ordered. site monitor. (2) ESRD (end stage renal disease) on dialysis Current Visit: Yes Status: Chronic Assessment and plan: Appreciate nephrology input., Considering subclinical intradialytic hypotension. (3) COPD (chronic obstructive pulmonary disease) Current Visit: Yes Status: Acute Assessment and plan: DuoNeb's every 6 hours.. Mucinex. Oral prednisone. Qualifiers: COPD type: chronic bronchitis Chronic bronchitis type: simple Qualified Code(s): J41.0 - Simple chronic bronchitis (4) Acute bronchitis Current Visit: Yes Status: Acute Assessment and plan: Plan as above. 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 She has been treated on tapering dose of oral vancomycin for suspected C. difficile infection. Continue oral vancomycin 125 mg po q 72hr. (6) HTN (hypertension) Current Visit: Yes Status: Acute Assessment and plan: The pressure in the ER 171/100. Continue home medications. Qualifiers: Hypertension type: essential hypertension Qualified Code(s): I10 - Essential (primary) hypertension (7) Pulmonary embolism on long-term anticoagulation therapy Current Visit: Yes Status: Chronic Assessment and plan: History of PE and DVT in the past. On lifelong anticoagulation with Coumadin. INR 1.4. Start heparin drip for bridging until INR above 2. - Subjective Interval history: Patient reports mild respiratory distress. - Constitutional Vitals: Temp Pulse Resp BP Pulse Ox 98.7 F 89 18 178/68 98 12/25/16 17:01 12/25/16 17:01 12/25/16 17:01 12/25/16 17:02 12/25/16 17:01 General appearance: Present: cooperative, mild distress, A&O X 3, pleasant, answers questions appropriately - Eye Eye exam: Present: PERRL, sclera anicteric - Neck Neck exam general surgery: Present: supple, trachea midline. Absent: lymphadenopathy - Cardiovascular Cardiovascular exam: Present: RRR - GI/Abdominal GI/Abdominal exam: Present: normal bowel sounds, soft. Absent: distended, tenderness - Extremities Exam Extremities exam: Present: pedal edema (ankle edema) - Back Exam Back exam: Absent: CVA tenderness (L), CVA tenderness (R) - Skin Skin exam: Present: dry. Absent: rash Internal Medicine: Result - Labs CBC & Chem 7: 12/25/16 14:29 12/24/16 17:22 Labs: Short CBC 12/25/16 Range/Units 14:29 WBC 7.6 (4.3-11.1) K/mcL Hgb 9.5 L (11.5-15.4) g/dL Hct 30.4 L (35.3-44.9) % Plt Count 226 (140-400) K/mcL Cardiac Enzymes 12/25/16 12/25/16 12/25/16 Range/Units 00:28 05:07 12:37 Troponin I 0.08 H* 0.08 H* 0.09 H* (0-0.03) ng/mL - ABG Interpretation ABG results: PT/INR, D-dimer PT 15.7 Seconds (9.4-12.1) H 12/25/16 14:29 Consult Discharge Plan - Plan Referrals: Lenard Caballero MD [Primary Care Provider] - (Needs to be called for appointment)
--- NOTE | 2016-12-25 18:48 | Electrocardiograph Report ---
[place] [id number] Test Date: 2016-12-24 Pat Name: Lili Laurent Department: 103 Room: [facility] [place] Gender: F Appraiser Personal Property: : 1930 Requested By: Ghulam Rod Order Number: [id number] Reading MD: Dada Martinez MD Measurements Intervals [place] Rate: 100 P: 67 IA: 145 QRS: 6 QRSD: 83 T: 32 QT: 343 QTc: 400 Interpretive Statements SINUS TACHYCARDIA WITH OCCASIONAL SUPRAVENTRICULAR PREMATURE COMPLEXES POOR R WAVE PROGRESSION BASELINE ARTIFACT Electronically Signed On 12-25-2016 18:47:00 EST by Dada Martinez MD
[2016-12-25] MEDS: Melatonin 3 MG TABLET PO SCH (21:09)
--- NOTE | 2016-12-25 22:39 | Carotid Imaging Report ---
Carotid Duplex Patient Name:Lili Laurent Order Number:[id number] Procedure Date:12/25/2016 Date:1930Age:86 yrs Gender:Female Location:[facility] Room #: 2A51 Podiatric Technician:Mian Obrien RN Referring MD:Srinivas Cotter, ROAD BOSS card punching machine operator:Lenard Caballero MD Reading MD:Siva Egan MD , FACS Primary Indications:presyncope Risk Factors Yes/No Hypertension Yes Diabetes No Hypercholesterolemia No Smoker Previous No Hx of TIA No Hx of CVA No Anticoagulants No Hx of CAD/PTCA No Previous Vascular Surgery No Impressions: Findings: Bilateral carotid system have nonstenotic plaque. Recommendations: Test completed on 12/25/2016 at 2:20:00 pm. Findings Carotid Duplex: Right: There is nonstenotic plaque in the right proximal common carotid artery with a PSV of 50 cm/s and a EDV of 8 cm/s. There is irregular heterogeneous plaque. There is nonstenotic plaque in the right mid common carotid artery with a PSV of 58 cm/s and a EDV of 15 cm/s. There is irregular heterogeneous plaque. There is nonstenotic plaque in the right distal common carotid artery with a PSV of 45 cm/s and a EDV of 9 cm/s. There is irregular heterogeneous plaque. There is nonstenotic plaque in the right bifurcation with a PSV of 49 cm/s and a EDV of 7 cm/s. There is irregular heterogeneous plaque. There is nonstenotic plaque in the right proximal internal carotid artery with a PSV of 46 cm/s and a EDV of 14 cm/s. There is smooth heterogeneous plaque. There is nonstenotic plaque in the right mid internal carotid artery with a PSV of 61 cm/s and a EDV of 17 cm/s. There is smooth heterogeneous plaque. The right distal internal carotid artery has a PSV of 79 cm/s and a EDV of 24 cm/s. There is nonstenotic plaque in the right eca with a PSV of 228 cm/s and a EDV of 33 cm/s. There is irregular heterogeneous plaque. The right vertebral artery has a PSV of 63 cm/s and a EDV of 8 cm/s. Left: There is nonstenotic plaque in the left proximal common carotid artery with a PSV of 71 cm/s and a EDV of 14 cm/s. There is smooth heterogeneous plaque. There is nonstenotic plaque in the left mid common carotid artery with a PSV of 68 cm/s and a EDV of 16 cm/s. There is irregular heterogeneous plaque. There is nonstenotic plaque in the left distal common carotid artery with a PSV of 92 cm/s and a EDV of 16 cm/s. There is irregular heterogeneous plaque. There is nonstenotic plaque in the left bifurcation with a PSV of 105 cm/s and a EDV of 16 cm/s. There is irregular heterogeneous plaque. There is nonstenotic plaque in the left proximal internal carotid artery with a PSV of 80 cm/s and a EDV of 20 cm/s. There is smooth heterogeneous plaque. There is nonstenotic plaque in the left mid internal carotid artery with a PSV of 102 cm/s and a EDV of 16 cm/s. There is smooth heterogeneous plaque. The left distal internal carotid artery has a PSV of 99 cm/s and a EDV of 31 cm/s. There is nonstenotic plaque in the left eca with a PSV of 163 cm/s and a EDV of 10 cm/s. There is irregular heterogeneous plaque. The left vertebral artery has a PSV of 59 cm/s and a EDV of 17 cm/s. Prior Study: No prior study available for comparison. Carotid Results Right PSV EDV Assessment Proximal CCA 50 8 Non Stenotic Plaque Mid CCA 58 15 Non Stenotic Plaque Distal CCA 45 9 Non Stenotic Plaque Bifurcation 49 7 Non Stenotic Plaque Proximal ICA 46 14 Non Stenotic Plaque Mid ICA 61 17 Non Stenotic Plaque Distal ICA 79 24 Normal ECA 228 33 Non Stenotic Plaque Vertebral Artery 63 8 Normal Left PSV EDV Assessment Proximal CCA 71 14 Non Stenotic Plaque Mid CCA 68 16 Non Stenotic Plaque Distal CCA 92 16 Non Stenotic Plaque Bifurcation 105 16 Non Stenotic Plaque Proximal ICA 80 20 Non Stenotic Plaque Mid ICA 102 16 Non Stenotic Plaque Distal ICA 99 31 Normal ECA 163 10 Non Stenotic Plaque Vertebral Artery 59 17 Normal Ratio's Right ICA/CCA Ratio: 1.36 ICA/CCA Values: 79/58 Left ICA/CCA Ratio: 1.50 ICA/CCA Values: 102/68 Updated by Siva Egan MD, FACS on 12/25/2016 10:33:55 PM Siva Egan MD electronically signed on 12/25/2016 10:34:29 PM with status of Final
[2016-12-25] MEDS: *HR* Heparin 5,000 UNIT/ML VIAL IVP PRN (22:50)
[2016-12-25] MEDS: Ipratropium Neb 0.5 MG NEBULIZER IH SCH (23:44)
[2016-12-25] MEDS: Levalbuterol Neb 0.63 MG/3 ML IH SCH (23:44)
[2016-12-26] MEDS: rOPINIRole 0.25 MG TABLET PO SCH ×4 (00:31→17:48)
[2016-12-26 04:18] LABS: Basophils # 0.1 K/mcL (0.0-0.2); Basophils % 0.5 %; Eosinophils % 0.3 %; Hematocrit 28.3 % (35.3-44.9); Immature Granulocytes % 1.8 % (0-4); Lymphocytes # 2.1 K/mcL (0.6-4.6); Lymphocytes % 19.9 %; Mean Corpuscular HGB Conc 31.8 g/dL (31.6-35.5); Mean Corpuscular Hemoglobin 31.9 pg (28.0-33.3); Mean Corpuscular Volume 100.4 fL (83.0-100.0); Mean Platelet Volume 9.2 fL (9.4-12.4); Monocytes # 0.7 K/mcL (0.0-1.3); Monocytes % 6.3 %; Neutrophils # 7.5 K/mcL (1.6-8.9); Platelet Count 238 K/mcL (140-400); Red Blood Count 2.82 M/mcL (3.82-4.97); Red Cell Distribution Width 15.1 % (11.5-14.5); Segmented Neutrophils % 71.2 %
[2016-12-26 04:33] LABS: Albumin 2.2 g/dL (3.5-5.0); Albumin/Globulin Ratio 0.6 (1.1-2.2); Bilirubin,Total 0.2 mg/dL (0.2-1.2); Calcium 8.7 mg/dL (8.6-10.8); Globulin 3.5 g/dL (2.4-3.5); Phosphorous 5.9 mg/dL (2.3-4.7); Potassium 4.1 mEq/L (3.5-4.5); Total Protein 5.7 g/dL (6.0-8.3)
[2016-12-26] MEDS: Levalbuterol Neb 0.63 MG/3 ML IH SCH ×4 (04:56→22:23)
[2016-12-26] MEDS: Ipratropium Neb 0.5 MG NEBULIZER IH SCH ×4 (04:56→22:24)
[2016-12-26 06:40] LABS: INR 1.6; Prothrombin Time 17.4 Seconds (9.4-12.1)
[2016-12-26] MEDS: Lactobacillus 1 EACH CAP.SPRINK PO SCH ×2 (08:41→20:59)
[2016-12-26] MEDS: Benzonatate 100 MG CAPSULE PO PRN ×2 (08:41→21:08)
[2016-12-26] MEDS: Aspirin Enteric Coated 81 MG Tablet PO SCH (08:42)
[2016-12-26] MEDS: predniSONE 20 MG TABLET PO SCH (08:42)
--- NOTE | 2016-12-26 09:03 | Cardiology Progress Note ---
Date of Encounter: 12/26/16 Time of Encounter: 09:00 Assessment and Plan (1) Near syncope Current Visit: Yes Status: Acute Likely secondary to hypovolemia d/t seven weeks of diarrhea and poor NPO intake , tachycardia on admission. States she is taking in oral better with thin liquids. Consider IV hydration if needed. Denies recurrent symptoms. 12 hour Telemetry shows SR avg HR 89 bpm, occasional PAC. One small run of SVT, 15 beats long. No bradycardia, pauses, or VT seen. TTE- EF 55-60%, mild LVH, moderately dilated LA, moderately to severely calcified aortic valve with moderate . Degree of not expected to cause symptoms. Follow with cardiology in out-pt setting to monitor. Carotid US - minimal plaque bilaterally. No further cardiac testing. Cardiology will sign-off. Call with questions. (2) Elevated troponin Current Visit: Yes Status: Acute mild adynamic troponin elevation in the setting of ESRD, elevated blood pressure 171/100, and possible hypotension during dialysis, and hypovolemia. Demand ischemia. TTE shows normal EF and wall motion abnormality. No further testing indicated. (3) Acute bronchitis Current Visit: Yes Status: Acute Your IM care. Qualifiers: Bronchitis organism: unspecified organism Qualified Code(s): J20.9 - Acute bronchitis, unspecified (4) ESRD (end stage renal disease) on dialysis Current Visit: Yes Status: Chronic Nephrology consulted. 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 (6) HTN (hypertension) Current Visit: Yes Status: Acute Blood pressure elevated today. Lisinopril increased by nephrology. Qualifiers: Hypertension type: essential hypertension Qualified Code(s): I10 - Essential (primary) hypertension Discussion w patient/family: The assessment and plan as outlined above was discussed with the patient and/or family members who expressed understanding and agreement. All questions were answered. Thank you for involving us in the care of your patient. Please call with any questions. Subjective Principal diagnosis: presyncope Interval history: Ms. Laurent denies lightheadedness or dizziness. C/o recurrent diarrhea last night. Objective Vital Signs, Last 4 Hours Temp Pulse BP Pulse Ox 12/26/16 07:13 98.5 F 82 180/71 99 General: Conversant, No Apparent Distress HEENT: Atraumatic, Normocephaly, Mucus Membranes Moist Neck: No JVD, Normal carotid pulses Cardiac: Reg Rate and Rhythm, Normal S1 and S2, No Murmur Lungs: Normal Breath Sounds, No Wheeze, Rales, Rhonchi Neuro: Alert and responsive, No focal deficits noted Abdomen: Soft, Non-Tender Skin: No rashes noted on visualized skin Musculoskeletal: No Chest Wall Tenderness Extremities: No Clubbing, No Cyanosis, No Edema, Normal Pulses Results 12/26/16 04:00 12/26/16 04:00 Lab Results 12/25/16 12/25/16 12/25/16 12:37 14:29 14:29 WBC 7.6 Hgb 9.5 L Hct 30.4 L Plt Count 226 INR 1.4 APTT 29.5 Sodium Potassium Chloride Carbon Dioxide BUN Creatinine Glucose Calcium Total Bilirubin AST ALT Alkaline Phosphatase Troponin I 0.09 H* 12/25/16 12/26/16 12/26/16 21:37 04:00 04:00 WBC 10.5 Hgb 9.0 L Hct 28.3 L Plt Count 238 INR APTT 57.9 H D Sodium 138 Potassium 4.1 Chloride 100 Carbon Dioxide 27 BUN 40 H D Creatinine 6.34 H D Glucose 118 H Calcium 8.7 Total Bilirubin 0.2 AST 32 ALT 18 Alkaline Phosphatase 78 Troponin I 12/26/16 12/26/16 04:00 05:53 WBC Hgb Hct Plt Count INR 1.6 APTT 81.5 H Sodium Potassium Chloride Carbon Dioxide BUN Creatinine Glucose Calcium Total Bilirubin AST ALT Alkaline Phosphatase Troponin I - Imaging and Cardiology Echo: report reviewed - EKG Interpretation EKG results cardiology: other (Telemetry review shows NSR with avg HR 89bpm. No VT or bradycardia. No pauses. One 15 beat run of SVT seen.) Consult Discharge Plan - Plan Referrals: Lenard Caballero MD [Primary Care Provider] - (Needs to be called for appointment)
--- NOTE | 2016-12-26 09:35 | Nephrology Progress Note ---
Date of Encounter: 12/26/16 Time of Encounter: 09:34 - Assessment and Plan (1) ESRD (end stage renal disease) on dialysis Current Visit: Yes Status: Chronic Patient will undergo dialysis today. Orders have been submitted. I am going to increase her lisinopril. (2) Acute bronchitis Current Visit: Yes Status: Acute Qualifiers: Bronchitis organism: unspecified organism Qualified Code(s): J20.9 - Acute bronchitis, unspecified (3) Elevated troponin Current Visit: Yes Status: Acute Subjective Principal diagnosis: presyncope Interval history: Patient is still having some coughing. She has some shortness of breath as well. She is scheduled for dialysis today. Her blood pressure is now elevated. Objective - Vital Signs Vital signs: Vital Signs Temp Pulse Resp BP BP BP BP 12/26/16 09:16 163/92 164/71 140/68 12/26/16 07:13 98.5 F 82 180/71 12/26/16 04:56 18 12/26/16 04:27 97.5 F L 85 20 142/58 12/25/16 23:48 98.3 F 91 20 190/104 12/25/16 20:45 97.5 F L 93 20 183/95 12/25/16 17:02 178/68 12/25/16 17:01 98.7 F 89 18 169/89 12/25/16 12:50 98.7 F 95 18 145/84 Pulse Ox 12/26/16 09:16 12/26/16 07:13 99 12/26/16 04:56 99 12/26/16 04:27 98 12/25/16 23:48 98 12/25/16 20:45 98 12/25/16 17:02 12/25/16 17:01 98 12/25/16 12:50 98 Intake and Output 12/25/16 12/26/16 12/26/16 23:59 07:59 15:59 Intake Total 125 / 125 121 / 121 120 / 120 Balance 125 / 125 121 / 121 120 / 120 Intake: IV Fluids 125 / 125 121 / 121 Heparin 25,000 UNIT/500 125 / 125 121 / 121 ML D5W 25,000 unit In 500 ml @ 14 UNIT/KG/HR 17.5 mls/hr IVC .Q24H [facility] Rx#: [id number] Oral 120 / 120 Other: Meal Breakfast Percent of Meal Consumed 50% Stool Size Small Stool Consistency loose Stool Color Brown Blood Tinged Weight 62.4 kg Patient Weight 12/26/16 23:59 Weight 62.4 kg - General Appearance Exam: Patient is alert and oriented. Lungs bilateral scattered rhonchi. Heart regular rate and rhythm. Abdomen is benign. There is no peripheral edema. There is a tunnel dialysis catheter in the left chest. There is an Infuse-a- Port in the right chest. - Lab 12/26/16 04:00 12/26/16 04:00 Most recent lab results Calcium 8.7 mg/dL (8.6-10.8) 12/26/16 04:00 Phosphorus 5.9 mg/dL (2.3-4.7) H 12/26/16 04:00 Consult Discharge Plan - Plan Referrals: Lenard Caballero MD [Primary Care Provider] - (Needs to be called for appointment)
[2016-12-26] MEDS ORDERED: 0.9 % Sodium Chloride 250 ML IV PRN (09:36)
[2016-12-26] MEDS ORDERED: traMADol 50 MG TABLET PO PRN (12:50)
[2016-12-26 13:00] LABS: Heparin anti-factor XA UFH 0.73 IU/mL (0.30-0.70)
[2016-12-26] MEDS: Heparin 25,000 UNIT/500 ML D5W 25,000 UNIT/500 ML MLS IVC SCH ×2 (15:03→22:20)
--- NOTE | 2016-12-26 15:37 | Internal Med Progress Note ---
Date of Encounter: 12/26/16 Time of Encounter: 14:30 - Assessment and plan (1) Near syncope Current Visit: Yes Status: Acute Assessment and plan: Patient felt dizzy and felt like she was going to pass out during her dialysis session on the day of admission 12/24. NO loc. She denied chest pain, palpitations. She reports 2 week history of dry cough and shortness of breath. She also has 7 weeks of chronic diarrhea and is on tapering dose of oral vancomycin for suspected C. difficile infection. Patient also reports poor oral intake because she was recommended thickened liquids and she does not like them. EKG showed no acute ischemic changes, frequent PAC. Echocardiogram LVEF 55%, mild LV diastolic dysfunction, moderate aortic stenosis. Doppler of carotids was unremarkable. Appreciate cardiology input. Near syncopal episode likely secondary to hypovolemia due to the dehydration from diarrhea and poor oral intake. Elevated troponin likely secondary to supply demand mismatch due to uncontrolled hypertension, dehydration and ESRD. (2) ESRD (end stage renal disease) on dialysis Current Visit: Yes Status: Chronic Assessment and plan: Appreciate nephrology input., Considering subclinical intradialytic hypotension. (3) COPD (chronic obstructive pulmonary disease) Current Visit: Yes Status: Acute Assessment and plan: Improving. DuoNeb's every 6 hours. Mucinex. Oral prednisone. Qualifiers: COPD type: chronic bronchitis Chronic bronchitis type: simple Qualified Code(s): J41.0 - Simple chronic bronchitis (4) Acute bronchitis Current Visit: Yes Status: Acute Assessment and plan: Plan as above. Qualifiers: Bronchitis organism: unspecified organism Qualified Code(s): J20.9 - Acute bronchitis, unspecified (5) Pulmonary embolism on long-term anticoagulation therapy Current Visit: Yes Status: Chronic Assessment and plan: Patient was diagnosed of PE and bilateral leg DVT 6 months ago. She is taking Coumadin. INR 1.4 on admission. Patient needs to continue heparin drip for bridging until INR > 2 given high risk for DVT due to recent diagnosis of PE and bilateral leg DVT just 6 months ago. 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 She has been treated on tapering dose of oral vancomycin for suspected C. difficile infection. Requesting records from [facility] about diagnosis c diff 7 weeks ago. Continue oral vancomycin 125 mg po q 72hr. (7) HTN (hypertension) Current Visit: Yes Status: Acute Assessment and plan: The pressure in the ER 171/100. Continue home medications. Qualifiers: Hypertension type: essential hypertension Qualified Code(s): I10 - Essential (primary) hypertension (8) Moderate protein-calorie malnutrition Current Visit: No Status: Chronic Assessment and plan: nutrition service is following. diet supplements. - Subjective Interval history: Patient has no complaints. No diarrhea today. - Constitutional Vitals: Temp Pulse Resp BP Pulse Ox 98.2 F 97 16 177/100 99 12/26/16 14:58 12/26/16 14:58 12/26/16 14:58 12/26/16 14:58 12/26/16 14:58 General appearance: Present: cooperative, mild distress, A&O X 3, pleasant, answers questions appropriately - Eye Eye exam: Present: PERRL, sclera anicteric - Neck Neck exam general surgery: Present: supple, trachea midline. Absent: lymphadenopathy - Respiratory Respiratory exam: Present: CTAB. Absent: wheezes - Cardiovascular Cardiovascular exam: Present: RRR - GI/Abdominal GI/Abdominal exam: Present: normal bowel sounds, soft. Absent: distended, tenderness - Extremities Exam Extremities exam: Absent: pedal edema - Back Exam Back exam: Absent: CVA tenderness (L), CVA tenderness (R) - Neurological Exam Neurological exam: Present: alert, oriented X3. Absent: facial droop, speech deficit Internal Medicine: Result - Labs CBC & Chem 7: 12/26/16 04:00 12/26/16 04:00 Labs: Short CBC 12/26/16 Range/Units 04:00 WBC 10.5 (4.3-11.1) K/mcL Hgb 9.0 L (11.5-15.4) g/dL Hct 28.3 L (35.3-44.9) % Plt Count 238 (140-400) K/mcL Neutrophils # 7.5 (1.6-8.9) K/mcL BMP 12/26/16 04:00 Sodium 138 Potassium 4.1 Chloride 100 Carbon Dioxide 27 BUN 40 H D Creatinine 6.34 H D Glucose 118 H Calcium 8.7 Liver Function 12/26/16 Range/Units 04:00 Total Bilirubin 0.2 (0.2-1.2) mg/dL AST 32 (5-34) Units/L ALT 18 (0-55) Units/L Alkaline Phosphatase 78 (38-126) Units/L Albumin 2.2 L (3.5-5.0) g/dL - ABG Interpretation ABG results: PT/INR, D-dimer PT 17.4 Seconds (9.4-12.1) H 12/26/16 05:53 Consult Discharge Plan - Plan Referrals: Lenard Caballero MD [Primary Care Provider] - (patient will follow up with [facility])
[2016-12-26] MEDS ORDERED: *HR* Heparin 10,000 UNIT/10 ML VIAL IV PRN (16:52)
[2016-12-26] MEDS ORDERED: *HR* Warfarin 4 MG TABLET PO SCH (18:00)
[2016-12-26] MEDS: *HR* Heparin 5,000 UNIT/ML VIAL IVP PRN (18:33)
[2016-12-26] MEDS: Melatonin 3 MG TABLET PO SCH (20:59)
[2016-12-27] MEDS: rOPINIRole 0.25 MG TABLET PO SCH ×3 (01:37→13:08)
[2016-12-27 04:45] LABS: Prothrombin Time 21.5 Seconds (9.4-12.1)
[2016-12-27 04:48] LABS: Activated Partial Thrombo Time 85.7 Seconds (26.0-36.0)
[2016-12-27 05:01] LABS: Calcium 8.4 mg/dL (8.6-10.8); Potassium 3.9 mEq/L (3.5-4.5)
[2016-12-27] MEDS: Ipratropium Neb 0.5 MG NEBULIZER IH SCH ×2 (05:19→10:00)
[2016-12-27] MEDS: Levalbuterol Neb 0.63 MG/3 ML IH SCH ×2 (05:19→10:00)
--- NOTE | 2016-12-27 07:48 | Nephrology Progress Note ---
Date of Encounter: 12/27/16 Time of Encounter: 07:46 - Assessment and Plan (1) ESRD (end stage renal disease) on dialysis Current Visit: Yes Status: Chronic Patient is stable from renal perspective. She is improving from the standpoint of her acute bronchitis. Vital signs are stable. She will continue to have dialysis every Thursday. (2) Acute bronchitis Current Visit: Yes Status: Acute Qualifiers: Bronchitis organism: unspecified organism Qualified Code(s): J20.9 - Acute bronchitis, unspecified (3) Elevated troponin Current Visit: Yes Status: Acute Subjective Principal diagnosis: presyncope Interval history: Patient reports she is feeling better. Her cough is improving and she is less short of breath. She had her dialysis yesterday. Vital signs are stable. Objective - Vital Signs Vital signs: Vital Signs Temp Pulse Resp BP Pulse Ox 12/27/16 07:10 97.9 F 66 18 144/72 98 12/27/16 05:05 98.7 F 87 16 129/82 99 12/26/16 23:57 98.4 F 89 17 124/58 98 12/26/16 22:23 16 98 12/26/16 21:00 98.7 F 97 16 130/59 98 12/26/16 19:55 98.2 F 16 130/80 12/26/16 19:45 142/77 12/26/16 19:30 134/81 12/26/16 19:15 146/78 12/26/16 19:00 137/85 12/26/16 18:45 158/91 12/26/16 18:30 168/97 12/26/16 18:15 181/95 12/26/16 18:00 165/86 12/26/16 17:45 158/91 Intake and Output 12/26/16 12/26/16 12/27/16 15:59 23:59 07:59 Intake Total 250 / 850 145 / 145 Output Total 2600 / 2600 0 / 0 Balance -2350 / -1750 145 / 145 Intake: IV Fluids 250 / 250 145 / 145 Heparin 25,000 UNIT/500 250 / 250 145 / 145 ML D5W 25,000 unit In 500 ml @ 14 UNIT/KG/HR 17.5 mls/hr IVC .Q24H [facility] Rx#: [id number] Oral 0 / 0 Output: Urine 0 / 0 0 / 0 Total Dialysis Output 2600 / 2600 Other: Meal Dinner Percent of Meal Consumed 20% Weight 63.1 kg Hemodialysis Net Fluid 2000 Removed (mL) Patient Weight 12/27/16 23:59 Weight 63.1 kg - General Appearance Exam: Patient is alert and oriented. She is in no acute distress. Lungs diminished breath sounds. She has fewer rhonchi than she did yesterday. Heart regular rate and rhythm. Abdomen is benign. There is no peripheral edema. There is a tunneled dialysis catheter in the left chest. - Lab 12/26/16 04:00 12/27/16 03:37 Most recent lab results Calcium 8.4 mg/dL (8.6-10.8) L 12/27/16 03:37 Phosphorus 5.9 mg/dL (2.3-4.7) H 12/26/16 04:00 Consult Discharge Plan - Plan Referrals: Lenard Caballero MD [Primary Care Provider] - (patient will follow up with [facility])
[2016-12-27] MEDS: Aspirin Enteric Coated 81 MG Tablet PO SCH (07:59)
[2016-12-27] MEDS: Lactobacillus 1 EACH CAP.SPRINK PO SCH (07:59)
[2016-12-27] MEDS: predniSONE 20 MG TABLET PO SCH (08:00)
[2016-12-27] MEDS: Benzonatate 100 MG CAPSULE PO PRN (08:09)
[2016-12-27] MEDS ORDERED: Vancomycin Oral Soln 250 MG/2.5 ML UDC PO SCH (09:00)
[2016-12-27] MEDS ORDERED: Cholecalciferol (D-3) 1,000 UNIT TABLET PO SCH (09:00)
--- NOTE | 2016-12-27 11:50 | Discharge Summary ---
Date of Encounter: 12/27/16 Time of Encounter: 11:30 - Discharge Diagnosis (1) Near syncope Priority: Primary Status: Acute (2) ESRD (end stage renal disease) on dialysis Priority: Primary Status: Chronic (3) COPD (chronic obstructive pulmonary disease) Priority: Primary Status: Acute Qualifiers: COPD type: chronic bronchitis Chronic bronchitis type: simple Qualified Code(s): J41.0 - Simple chronic bronchitis (4) Acute bronchitis Priority: Primary Status: Acute Qualifiers: Bronchitis organism: unspecified organism Qualified Code(s): J20.9 - Acute bronchitis, unspecified (5) Pulmonary embolism on long-term anticoagulation therapy Priority: Primary Status: Chronic (6) C. difficile diarrhea Priority: Secondary Status: Chronic (7) HTN (hypertension) Priority: Secondary Status: Chronic Qualifiers: Hypertension type: essential hypertension Qualified Code(s): I10 - Essential (primary) hypertension (8) Moderate protein-calorie malnutrition Priority: Secondary Status: Chronic - Discharge Medications Prescriptions: Tramadol HCl [Ultram] 50 mg PO Q6H PRN #10 tablet PRN Reason: Pain Home Medications: Acetaminophen [Tylenol] 500 - 1,000 mg PO QID PRN 12/24/16 [History] Aspirin Enteric Coated [Aspirin EC] 81 mg PO DAILY 12/24/16 [History] Calcium Polycarbophil [Fiber Laxative] 625 mg PO QAM 12/24/16 [History] Dicyclomine [Bentyl] 10 mg PO BID 12/24/16 [History] DiphenhydraMINE [Benadryl] 25 mg PO HS 12/24/16 [History] Epoetin Anand [Procrit] 10,000 unit IJ MOWEFR 12/24/16 [History] Ergocalciferol (VITAMIN D2) [Vitamin D] 400 unit PO SA 12/24/16 [History] L. Rhamnosus GG/Inulin [Culturelle Capsule] 1 each PO BID 12/24/16 [History] Melatonin 3 mg PO HS 12/24/16 [History] Metoclopramide HCl 5 mg PO HS 12/24/16 [History] Metoprolol [Lopressor] 37.5 mg PO TID 12/24/16 [History] Nitroglycerin 0.4 mg SL Q5M PRN 12/24/16 [History] Pantoprazole Sodium [Protonix] 40 mg PO QAM 12/24/16 [History] Promethazine [Phenergan] 25 mg PO QAM 12/24/16 [History] Ropinirole HCl [Requip] 0.5 mg PO Q6H 12/24/16 [History] Sevelamer [Renvela] 1,600 mg PO TIDWM 12/24/16 [History] Vancomycin HCl 125 mg PO Q48H 12/24/16 [History] Vancomycin HCl 125 mg PO Q72H 12/24/16 [History] Warfarin [Coumadin] 4 mg PO SUMOWETHFR 12/24/16 [History] Warfarin [Coumadin] 5 mg PO TUSA 12/24/16 [History] GuaiFENesin ER [Mucinex] 600 mg PO BID PRN tbbp.12hr 12/27/16 [Rx] Ipratropium Neb [Atrovent Neb] 0.5 mg IH [id number] inhsol 12/27/16 [Rx] Lisinopril [Zestril] 10 mg PO BID tablet 12/27/16 [Rx] Tramadol HCl [Ultram] 50 mg PO Q6H PRN #10 tablet 12/27/16 [Rx] Allergies/Adverse Reactions: Allergies Penicillins [PCN] Allergy (Verified 10/03/16 12:12) Anaphylaxis clarithromycin [From Biaxin] Adverse Reaction (Verified 10/03/16 12:12) Rash gentamicin Adverse Reaction (Verified 10/03/16 12:12) Hallucinating Sulfa (Sulfonamide Antibiotics) Adverse Reaction (Verified 10/03/16 12:12) Shakiness Date of admission: 12/26/16 17:40 Primary care physician: Lenard Caballero MD - Patient Status Disposition: Transfer SNF Condition: Good Functional capacity at discharge: uses cane/walker Overall status at discharge: patient is progressing back to baseline - Discharge Instructions Follow Up With: Lenard Caballero MD [Primary Care Provider] - (patient will follow up with [facility] pcp) - Diet and Activity Activity: as per physical therapy Diet: low fat, low cholesterol, low salt diet, other (pt on coumadin) Interval History: pt has no complaints. no bleeding. INR is 2. stop heaprin drip. ready for discharge. Hospital course: Ms. Laurent is a 86 year old female with past medical history, COPD, diastolic heart failure, recent diagnosis of PE and bilateral DVT 6 months ago on Coumadin , and a staged renal disease on hemodialysis, and being treated with tapering dose of vancomycin for difficult to treat c diff infection diagnosed 7 weeks ago. Patient presented with dizziness and near syncopal episode. Patient felt dizzy and felt like she was going to pass out during her dialysis session on the day of admission 12/24. NO loc. She denied chest pain, palpitations. She reports 2 week history of dry cough and shortness of breath. She also has 7 weeks of chronic diarrhea and is on tapering dose of oral vancomycin for suspected C. difficile infection. Patient also reports poor oral intake because she was recommended thickened liquids and she does not like them. EKG showed no acute ischemic changes, frequent PAC. Echocardiogram LVEF 55%, mild LV diastolic dysfunction, moderate aortic stenosis. Doppler of carotids was unremarkable. Near syncopal episode likely secondary to hypovolemia due to the dehydration from diarrhea and poor oral intake. Elevated troponin likely secondary to supply demand mismatch due to uncontrolled hypertension, dehydration and ESRD. Her bronchitis and COPD improved. She was started on heparin drip given a subtherapeutic INR. At discharge, INR was 2. Episode of hypertension that were better controlled after adjusting lisinopril twice a day. PLAN: [facility] - Time Spent with Patient Total time spent providing and/or coordinating discharge services: - Constitutional Vitals: Temp Pulse Resp BP Pulse Ox 97.9 F 66 18 144/72 98 12/27/16 07:10 12/27/16 07:10 12/27/16 07:10 12/27/16 07:10 12/27/16 07:10 General appearance: Present: cooperative, mild distress, A&O X 3, pleasant, answers questions appropriately - Eye Eye exam: Present: PERRL, sclera anicteric - Neck Neck exam general surgery: Present: supple, trachea midline. Absent: lymphadenopathy - Respiratory Respiratory exam: Present: rhonchi, wheezes - Cardiovascular Cardiovascular exam: Present: RRR - GI/Abdominal GI/Abdominal exam: Present: normal bowel sounds, soft. Absent: distended, tenderness - Extremities Exam Extremities exam: Absent: pedal edema - Back Exam Back exam: Absent: CVA tenderness (L), CVA tenderness (R) - Neurological Exam Neurological exam: Present: alert, oriented X3. Absent: facial droop, speech deficit - Skin Skin exam: Absent: rash
--- NOTE | 2016-12-27 11:58 | Physician Discharge Referral ---
ExtendedCare Referral Info Transfer To: snf Provider in Charge: cliff Provider in Charge after Transfer: PCP Institutional Level of Care: Skilled - Diagnosis (1) Near syncope Status: Acute (2) ESRD (end stage renal disease) on dialysis Status: Chronic (3) COPD (chronic obstructive pulmonary disease) Status: Acute (4) Acute bronchitis Status: Acute (5) Pulmonary embolism on long-term anticoagulation therapy Status: Chronic (6) C. difficile diarrhea Status: Chronic (7) HTN (hypertension) Status: Chronic (8) Moderate protein-calorie malnutrition Status: Chronic - Transfer Medications Prescriptions: Tramadol HCl [Ultram] 50 mg PO Q6H PRN #10 tablet PRN Reason: Pain Home Medications: Acetaminophen [Tylenol] 500 - 1,000 mg PO QID PRN 12/24/16 [History] Aspirin Enteric Coated [Aspirin EC] 81 mg PO DAILY 12/24/16 [History] Calcium Polycarbophil [Fiber Laxative] 625 mg PO QAM 12/24/16 [History] Dicyclomine [Bentyl] 10 mg PO BID 12/24/16 [History] DiphenhydraMINE [Benadryl] 25 mg PO HS 12/24/16 [History] Epoetin Anand [Procrit] 10,000 unit IJ MOWEFR 12/24/16 [History] Ergocalciferol (VITAMIN D2) [Vitamin D] 400 unit PO SA 12/24/16 [History] L. Rhamnosus GG/Inulin [Culturelle Capsule] 1 each PO BID 12/24/16 [History] Melatonin 3 mg PO HS 12/24/16 [History] Metoclopramide HCl 5 mg PO HS 12/24/16 [History] Metoprolol [Lopressor] 37.5 mg PO TID 12/24/16 [History] Nitroglycerin 0.4 mg SL Q5M PRN 12/24/16 [History] Pantoprazole Sodium [Protonix] 40 mg PO QAM 12/24/16 [History] Promethazine [Phenergan] 25 mg PO QAM 12/24/16 [History] Ropinirole HCl [Requip] 0.5 mg PO Q6H 12/24/16 [History] Sevelamer [Renvela] 1,600 mg PO TIDWM 12/24/16 [History] Vancomycin HCl 125 mg PO Q48H 12/24/16 [History] Vancomycin HCl 125 mg PO Q72H 12/24/16 [History] Warfarin [Coumadin] 4 mg PO SUMOWETHFR 12/24/16 [History] Warfarin [Coumadin] 5 mg PO TUSA 12/24/16 [History] GuaiFENesin ER [Mucinex] 600 mg PO BID PRN tbbp.12hr 12/27/16 [Rx] Ipratropium Neb [Atrovent Neb] 0.5 mg IH [id number] inhsol 12/27/16 [Rx] Lisinopril [Zestril] 10 mg PO BID tablet 12/27/16 [Rx] Tramadol HCl [Ultram] 50 mg PO Q6H PRN #10 tablet 12/27/16 [Rx] Allergies/Adverse Reactions: Allergies Penicillins [PCN] Allergy (Verified 10/03/16 12:12) Anaphylaxis clarithromycin [From Biaxin] Adverse Reaction (Verified 10/03/16 12:12) Rash gentamicin Adverse Reaction (Verified 10/03/16 12:12) Hallucinating Sulfa (Sulfonamide Antibiotics) Adverse Reaction (Verified 10/03/16 12:12) Shakiness - Respiratory Orders Oxygen / L per min (2) Smoking Cessation: Smoking cessation has been advised. For more information, call the [place] Tobacco Quit Line at 1-066-KINQ-NOW. - Lab Orders Lab Orders: Other (include drug levels w/frequency) (INR daily) - Ancillary Orders May use pressure relief devices daily prn - Advance Directives Code Status: Full Code - Rehabiliation Orders Rehab Potential: Fair Rehab Orders: Evaluation for Physical Therapy, Evaluation for Occupational Therapy - Treatments Skin tear care topically daily PRN per policy - Diet Orders No Added Salt (GENOVEVA), Renal, Cardiac CERTIFICATION: I certify that the transfer of the above named patient to an Extended Care Facility is necessary for the continuing treatment of the diagnosis listed. The above information is true and accurate reflection of patient's current condition. Confidential - Redisclosure prohibited without a patient's written consent.
[2016-12-27 12:00] VITALS: BP 147/71
[2016-12-27] MEDS ORDERED: *HR* Warfarin 5 MG TABLET PO SCH (18:00)
[2016-12-30] MEDS ORDERED: Vancomycin Oral Soln 250 MG/2.5 ML UDC PO SCH (09:00)
== END 2016-12-27 13:14 | DRG 190 ==
LOC: 2ANU 16:50 → EMEROO 16:50 → 2ANU 21:28
PROVIDERS: ADMIT Pediatrics; ATTEND Internal Medicine